=== PATIENT | female | born 1985 | race African-American/Black ===

== ENCOUNTER 2017-11-04 07:47 | Inpatient (IN) | payer MEDICAID ==
[2017-11-04] MEDS ORDERED: ZOFRAN IV PRN (07:51)
[2017-11-04] MEDS ORDERED: BRETHINE IVP PRN (07:51)
[2017-11-04] MEDS ORDERED: BRETHINE SUB-Q PRN (07:51)
[2017-11-04] MEDS ORDERED: XYLOCAINE 2% INFILTRATI NR (07:51)
[2017-11-04] MEDS ORDERED: PITOCin/NS 30 UNIT/500ML 30 UNITS/500 ML BAG IV SCH (08:00)
[2017-11-04] MEDS ORDERED: LACTATED RINGERS 1,000 ML IV SCH (08:00)
[2017-11-04] MEDS ORDERED: PITOCin/NS 20 UNIT/1000ML DRIP 20 UNITS/1,000 ML BAG IV SCH (08:00)
[2017-11-04 08:41] LABS: Hematocrit 39.6 % (30.3-42.9); Mean Corpuscular HGB Conc 33 % (30-34); Mean Corpuscular Hemoglobin 29 pg (28-32); Mean Corpuscular Volume 87 fl (79-97); Platelet Count 266 K/mm3 (140-440); Red Blood Count 4.55 M/mm3 (3.65-5.03); Red Cell Distribution Width 14.3 % (13.2-15.2)
[2017-11-04] MEDS ORDERED: SUBLIMAZE IV NR (08:54)
[2017-11-04] MEDS ORDERED: POLYCILLIN/NS 2 GM/100 ML 2 GM/100 ML BAG IV SCH (09:00)
--- NOTE | 2017-11-04 09:47 | History and Physical Report ---
History of Present Illness Date of examination: 11/04/17 (pt presents in labor with SROM) Date of admission: 11/04/17 07:53 History of present illness: EDC Confirmation: 11/05/2017 Gestational Age: 12 weeks Past History : 3 Term Births: 1 Premature Births: 1 Living Children: 2 Para: 2 # 1 Delivery date: 02/19/2003 labor: yes Delivery type: Delivery location: [facility] Sex: Female weight: [id number] Comments: Unsure of gestation but knows delivered early # 2 Delivery date: 03/10/2008 labor: no Delivery type: Delivery location: [facility] Infant Sex: Male weight: 6lb5oz Past Medical History: negative Past Surgical History: negative General Comments - FH: negative Social History: Patient is single Smoking History: Patient currently smokes sometimes. Last cigarette 2 wks ago Patient has been counseled to quit. Risk Factors: Smoked Tobacco Use: Current some day smoker Cigarettes: Yes -- 0 pack(s) per day,Smokeless Tobacco Use: Never Counseled to quit/cut down: yes Passive smoke exposure: no Drug use: no HIV high-risk behavior: no Caffeine use: 1 drinks per day Alcohol use: yes Type: beer Comments: Beer 2-3 wks ago Seatbelt use: 100 % Dietary Counseling: pn yes Past Medical History Anesthesia Complications: negative Anemia: negative Autoimmune Disorder: negative Bleeding Disorder: negative Blood Transfusions: negative Breast Disease: negative Diabetes: negative Heart Disease: negative Hypertension: negative Hepatitis/Liver Disease: negative Kidney Disease/UTI: negative Neurologic/Epilepsy/Migraines: negative Phlebitis/Varicosities: negative Psychiatric: negative Pulmonary Disease/Asthma: negative Thyroid Disease: negative Hospitalizations: negative Surgery (Non-pulp roller): negative Abnormal PAP: negative QUIANA Exposure: negative Infertility: negative Uterine Anomaly: negative Uterine Surgery (not C/S): negative Other Gynecologic Problems: negative Family Hx: negative Social Hx: Patient is single Smoking History: Patient currently smokes sometimes. Last cigarette 2 wks ago Patient has been counseled to quit. Infection History Hx of STD: none HIV Risk Eval: no Hepatitis B Risk Eval: low risk Personal hx. of genital herpes: no Partner hx. of genital herpes: no Rash, Viral, or Febrile illness since last LMP? no Varicella/Chicken Pox Status: Previous Disease TB Risk: no Genetic History Congenital Heart Defect: Mom: no Dad: no Sara Disease: Mom: no Dad: no Thalassemia Mom: no Dad: no Neural Tube Defect Mom: no Dad: no Down's Syndrome Mom: no Dad: no Rolando-Sachs Mom: no Dad: no Sickle Cell Disease/Trait Mom: no Dad: no Hemophilia Mom: no Dad: no Muscular Dystrophy Mom: no Dad: no Cystic Fibrosis Mom: no Dad: no [place] Chorea Mom: no Dad: no Mental Retardation Mom: no Dad: no Fragile X Mom: no Dad: no Other Genetic/Chromosomal Disorder Mom: no Dad: no Child w/other defect Mom: no Dad: no Enviromental Exposures Xray Exposure: no Medication, drug, or alcohol use since LMP: yes Chemical/Other Exposure: no Exposure to Cat Liter: no Hx of Parvovirus (Fifth Disease): no Occupational Exposure to Children: none Active Medications (reviewed today): None Current Allergies (reviewed today): No known allergies Past History - Obstetrical History Expected Date of Delivery: 11/05/17 Actual Gestation: 40 Week(s) 0 Day(s) : 3 Para: 2 Hx # Term Pregnancies: 1 Number of Pregnancies: 1 Spontaneous Abortions: 0 Induced : 0 Number of Living Children: 2 Medications and Allergies Allergies Allergy/AdvReac Type Severity Reaction Status Date / Time No Known Allergies Allergy Unverified 11/04/17 08:18 Home Medications Medication Instructions Recorded Confirmed Last Taken Type No Known Home Medications [No 11/04/17 11/04/17 Unknown History Reported Home Medications] Active Meds: Active Medications Ephedrine Sulfate (Ephedrine Sulfate) 10 mg IV Q2M PRN PRN Reason: Hypotension Fentanyl (Sublimaze) 100 mcg IV ONCE NR Stop: 11/04/17 10:00 Last Admin: 11/04/17 09:35 Dose: 100 mcg Lactated Ringer's (Lactated Ringers) 1,000 mls @ 125 mls/hr IV DIRECT SUZETTE Last Admin: 11/04/17 09:27 Dose: 125 mls/hr Oxytocin/Sodium Chloride (Pitocin/Ns 20 Unit/1000ml Drip) 20 units in 1,000 mls @ 125 mls/hr IV DIRECT SUZETTE Oxytocin/Sodium Chloride (Pitocin/Ns 30 Unit/500ml) 30 units in 500 mls @ 4 mls /hr IV Q30MIN SUZETTE; Protocol Ampicillin Sodium (Ampicillin/Ns 1 Gm/50 Ml) 1 gm in 50 mls @ 100 mls/hr IV Q4HR SUZETTE; Protocol Ampicillin Sodium (Polycillin/Ns 2 Gm/100 Ml) 2 gm in 100 mls @ 100 mls/hr IV ONCE SUZETTE; Protocol Stop: 11/04/17 11:00 Last Admin: 11/04/17 09:34 Dose: 100 mls/hr Lidocaine (Xylocaine 2%) 20 ml INFILTRATI ONCE NR Stop: 11/04/17 11:00 Mineral Oil (Mineral Oil) 30 ml PO QHS PRN PRN Reason: Constipation Ondansetron HCl (Zofran) 4 mg IV Q8H PRN PRN Reason: Nausea And Vomiting Terbutaline Sulfate (Brethine) 0.25 mg SUB-Q ONCE PRN PRN Reason: Hyperstimulation/Hypertonicity Terbutaline Sulfate (Brethine) 0.25 mg IVP ONCE PRN PRN Reason: Hyperstimulation/Hypertonicity - Vital Signs Vital signs: Vital Signs Pulse BP 63 136/84 11/04/17 07:54 11/04/17 07:54 Temp Pulse Resp BP Pulse Ox 98.1 F 54 L 20 129/86 11/04/17 08:30 11/04/17 08:38 11/04/17 09:35 11/04/17 08:38 - Physical Exam Breasts: Positive: deferred Cardiovascular: Regular rate, Normal S1, Normal S2 Abdomen: Positive: normal appearance, soft, normal bowel sounds. Negative: distention, tenderness Genitourinary (Female): Positive: normal external genitalia Vulva: both: normal Vagina: Positive: normal moisture. Negative: discharge Cervix: Negative: lesion, discharge Uterus: Positive: normal size, normal contour Adnexa: both: normal Anus/Rectum: Positive: normal perianal skin, heme negative. Negative: rectal mass, hemorrhoids Extremities: Deep Tendon Reflex Grade: Normal +2 - Obstetrical FHR: category 1 Uterine Contraction Monitor Mode: External Cervical Dilatation: 2 (SROM) Cervical Effacement Percentage: 50 station: -2 Uterine Contraction Pattern: Regular Uterine Tone Measurement Phase: Resting Uterine Contraction Intensity: Strong/Firm Results Result Diagrams: 11/04/17 08:23 All other labs normal. Strep Gp B PRATIMA [A] Positive HBsAg Screen Negative Negative *1 RPR [A] Reactive Non Reactive *2 Tests: (2) RPR Qn+TP Abs (764915) RPR, Quant. [H] 1:1 NonRea<1:1 *3 ! Treponema pallidum Antibodies [A] Positive Negative *4 Tests: (3) Profile I ([id number]) Rubella Antibodies, IgG 2.43 index Immune >0.99 *5 Non-immune <0.90 Equivocal 0.90 - 0.99 Immune >0.99 ABO Grouping AB *6 Rh Factor Positive *7 Please note: Prior records for this patient's ABO / Rh type are not available for additional verification. Antibody Screen Negative Negative *8 WBC 8.2 x10E3/uL 3.4-10.8 *9 RBC 4.06 x10E6/uL 3.77-5.28 *10 Hemoglobin 12.2 g/dL 11.1-15.9 *11 Hematocrit 36.8 % 34.0-46.6 *12 MCV 91 fL 79-97 *13 MCH 30.0 pg 26.6-33.0 *14 MCHC 33.2 g/dL 31.5-35.7 *15 RDW 13.0 % 12.3-15.4 *16 Platelets 249 x10E3/uL 150-379 *17 Neutrophils 71 % Not Estab. *18 Lymphs 23 % Not Estab. *19 Monocytes 5 % Not Estab. *20 Eos 1 % Not Estab. *21 Basos 0 % Not Estab. *22 ! Immature Cells <No Reported Value> *23 Neutrophils (Absolute) 5.8 x10E3/uL 1.4-7.0 *24 Lymphs (Absolute) 1.8 x10E3/uL 0.7-3.1 *25 Monocytes(Absolute) 0.4 x10E3/uL 0.1-0.9 *26 Eos (Absolute) 0.1 x10E3/uL 0.0-0.4 *27 Baso (Absolute) 0.0 x10E3/uL 0.0-0.2 *28 ! Immature Granulocytes 0 % Not Estab. *29 ! Immature Grans (Abs) 0.0 x10E3/uL 0.0-0.1 *30 ! NRBC <No Reported Value> *31 Hematology Comments: <No Reported Value> *32 Tests: (4) AFP Tetra ([id number]) ! Results Report *33 ! Test Results: *Screen Negative* *34 ! Tests: (5) Panel 008538 ([id number]) HIV Screen 4th Generation wRfx Non Reactive Non Reactive *57 Tests: (6) HCV Ab w/Rflx to Verification ([id number]) ! HCV Ab <0.1 s/co ratio 0.0-0.9 *58 Tests: (7) Comment: ([id number]) ! Comment: SPRCS *59 Non reactive HCV antibody screen is consistent with no HCV infection, unless recent infection is suspected or other evidence exists to indicate HCV infection. Tests: (8) Urine Culture, Routine ([id number]) Urine Culture, Routine Final report *60 Tests: (9) Result ([id number]) ! Result 1 No growth Assessment and Plan 32yo @ 39 weeks with SROM fluid clear on admission. GBS+ Ampicillin per protocol Orders in EMR - Patient Problems (1) 39 weeks gestation of Onset Date: ~11/04/17 Current Visit: Yes Status: Acute (2) Group B Streptococcus carrier state affecting Onset Date: ~11/04/17 Current Visit: Yes Status: Acute (3) Spontaneous rupture of membranes Onset Date: ~11/04/17 Current Visit: Yes Status: Acute
[2017-11-04] MEDS ORDERED: SUBLIMAZE IV SCH (10:00)
[2017-11-04] MEDS ORDERED: NARCAN 2 MG/2 ML IV PRN (10:57)
--- NOTE | 2017-11-04 10:57 | Anesthesia Consultation ---
Anesthesia Consult and Med Hx Date of service: 11/04/17 - Airway Anesthetic Teeth Evaluation: Good ROM Head & Neck: Adequate Mental/Hyoid Distance: Adequate Mallampati Class: Class II Intubation Access Assessment: Probably Good - Pre-Operative Health Status ASA Pre-Surgery Classification: ASA2 Proposed Anesthetic Plan: Epidural, Spinal - Pulmonary Hx Asthma: No COPD: No Hx Pneumonia: No - Cardiovascular System Hx Hypertension: No - Central Nervous System Hx Seizures: No Hx Psychiatric Problems: No - Endocrine Hx Renal Disease: No Hx End Stage Renal Disease: No Hx Hypothyroidism: No Hx Hyperthyroidism: No - Hematic Hx Anemia: No Hx Sickle Cell Disease: No - Other Systems Hx Alcohol Use: No
[2017-11-04] MEDS: fentaNYL-BUPIV 2 MCG/ML-0.125% 200 MCG/100 ML BAG EPIDURAL SCH ×2 (12:14→19:06)
[2017-11-04] MEDS ORDERED: XYLOCAINE MPF 2% ONE (13:08)
[2017-11-04] MEDS: AMPICILLIN/NS 1 GM/50 ML 1 GM/50 ML BAG IV SCH ×2 (14:00→19:08)
[2017-11-04] MEDS ORDERED: NACL 0.45% 1000 ML 1,000 ML IV ONE (18:12)
[2017-11-04] MEDS ORDERED: NACL 0.9% 1000 ML 1,000 ML VG SCH ×2 (19:00)
--- NOTE | 2017-11-04 21:39 | Procedure Note ---
OB Delivery Note - Delivery Date of Delivery: 11/04/17 Surgeon: LORIN LUNDY Estimated blood loss: 300cc - Vaginal Delivery presentation: vertex Delivery position: OA Intrapartum events: PROM->1hr before delivery, meconium, mult.variable deceleratio, other(please specify) (multiple variables improved after administration of amnioinfusion) Delivery augmentation: pitocin Delivery monitor: external FHT, external uterine, internal FHT, internal uterine Route of delivery: Delivery placenta: spontaneous Delivery cord: nuchal cord (1) Episiotomy: none Delivery laceration: 2nd degree Delivery repair: vicryl Anesthesia: epidural Delivery comments: NICU staff present at time of delivery - Infant A at 1 minute: 8 at 5 minutes: 9 Gender: Male (6 lbs. 11 oz.)
[2017-11-04] MEDS ORDERED: MINERAL OIL PO PRN (22:00)
[2017-11-04] MEDS ORDERED: BENADRYL PO PRN (23:18)
[2017-11-04] MEDS ORDERED: NORCO 5/325 PO PRN (23:18)
[2017-11-04] MEDS ORDERED: DULCOLAX PR PRN (23:18)
[2017-11-04] MEDS ORDERED: MILK OF MAGNESIA PO PRN (23:18)
[2017-11-04] MEDS ORDERED: PHENERGAN PO PRN (23:18)
[2017-11-04] MEDS ORDERED: TUCKS PAD TP PRN (23:18)
[2017-11-04] MEDS ORDERED: LANSINOH TP PRN (23:18)
[2017-11-04] MEDS ORDERED: SODIUM CHLORIDE FLUSH SYRINGE 10 ML IV NR (23:18)
[2017-11-04] MEDS ORDERED: TYLENOL PO PRN (23:18)
[2017-11-05] MEDS: COLACE PO SCH ×2 (00:12→10:52)
[2017-11-05] MEDS: MOTRIN PO SCH ×4 (00:14→18:00)
--- NOTE | 2017-11-05 08:31 | Progress Note ---
Assessment and Plan - Patient Problems (1) Spontaneous vaginal delivery Onset Date: ~11/04/17 Current Visit: Yes Status: Acute Plan to address problem: Resting No c/o voiced Baby sleeping VSS FF below umb Lochia small Perineum intact H&H pending Doing well s/p vag delivery P: continue pathway d/c tomorrow Subjective - Subjective Date of service: 11/05/17 (no c/o voiced) Principal diagnosis: Day # 1 s/p vag delivery Interval history: EDC Confirmation: 11/05/2017 Gestational Age: 12 weeks Past History : 3 Term Births: 1 Premature Births: 1 Living Children: 2 Para: 2 # 1 Delivery date: 02/19/2003 labor: yes Delivery type: Delivery location: [facility] Sex: Female weight: [id number] Comments: Unsure of gestation but knows delivered early # 2 Delivery date: 03/10/2008 labor: no Delivery type: Delivery location: [facility] Sex: Male weight: 6lb5oz Past Medical History: negative Past Surgical History: negative General Comments - FH: negative Social History: Patient is single Smoking History: Patient currently smokes sometimes. Last cigarette 2 wks ago Patient has been counseled to quit. Risk Factors: Smoked Tobacco Use: Current some day smoker Cigarettes: Yes -- 0 pack(s) per day,Smokeless Tobacco Use: Never Counseled to quit/cut down: yes Passive smoke exposure: no Drug use: no HIV high-risk behavior: no Caffeine use: 1 drinks per day Alcohol use: yes Type: beer Comments: Beer 2-3 wks ago Seatbelt use: 100 % Dietary Counseling: pn yes Past Medical History Anesthesia Complications: negative Anemia: negative Autoimmune Disorder: negative Bleeding Disorder: negative Blood Transfusions: negative Breast Disease: negative Diabetes: negative Heart Disease: negative Hypertension: negative Hepatitis/Liver Disease: negative Kidney Disease/UTI: negative Neurologic/Epilepsy/Migraines: negative Phlebitis/Varicosities: negative Psychiatric: negative Pulmonary Disease/Asthma: negative Thyroid Disease: negative Hospitalizations: negative Surgery (Non-sales associate): negative Abnormal PAP: negative QUIANA Exposure: negative Infertility: negative Uterine Anomaly: negative Uterine Surgery (not C/S): negative Other Gynecologic Problems: negative Family Hx: negative Social Hx: Patient is single Smoking History: Patient currently smokes sometimes. Last cigarette 2 wks ago Patient has been counseled to quit. Infection History Hx of STD: none HIV Risk Eval: no Hepatitis B Risk Eval: low risk Personal hx. of genital herpes: no Partner hx. of genital herpes: no Rash, Viral, or Febrile illness since last LMP? no Varicella/Chicken Pox Status: Previous Disease TB Risk: no Genetic History Congenital Heart Defect: Mom: no Dad: no Sara Disease: Mom: no Dad: no Thalassemia Mom: no Dad: no Neural Tube Defect Mom: no Dad: no Down's Syndrome Mom: no Dad: no Rolando-Sachs Mom: no Dad: no Sickle Cell Disease/Trait Mom: no Dad: no Hemophilia Mom: no Dad: no Muscular Dystrophy Mom: no Dad: no Cystic Fibrosis Mom: no Dad: no [place] Chorea Mom: no Dad: no Mental Retardation Mom: no Dad: no Fragile X Mom: no Dad: no Other Genetic/Chromosomal Disorder Mom: no Dad: no Child w/other defect Mom: no Dad: no Enviromental Exposures Xray Exposure: no Medication, drug, or alcohol use since LMP: yes Chemical/Other Exposure: no Exposure to Cat Liter: no Hx of Parvovirus (Fifth Disease): no Occupational Exposure to Children: none Active Medications (reviewed today): None Current Allergies (reviewed today): No known allergies Patient reports: appetite normal, voiding normally, pain well controlled, ambulating normally : doing well Objective - Vital Signs Latest vital signs: Vital Signs Temp Pulse Resp BP BP Pulse Ox 11/05/17 04:30 98.7 F 74 16 114/78 11/04/17 23:00 98.7 F 66 16 101/74 11/04/17 22:30 73 130/76 11/04/17 22:29 64 97 11/04/17 22:24 68 99 11/04/17 22:15 69 132/76 11/04/17 22:00 84 130/76 11/04/17 21:45 81 132/75 11/04/17 21:33 77 125/81 11/04/17 21:31 69 135/79 11/04/17 21:01 77 147/67 11/04/17 20:52 65 100 11/04/17 20:47 61 100 11/04/17 20:42 62 100 11/04/17 20:37 71 100 09/24/18 20:32 68 100 18 20:31 63 138/78 18 20:27 64 100 18 20:22 61 100 18 20:17 64 100 18 20:16 56 L 127/82 18 20:12 59 L 100 18 20:07 55 L 100 18 20:05 97.5 F L 63 18 146/84 100 18 20:02 60 100 18 20:01 63 146/84 18 19:57 56 L 100 18 19:52 68 100 18 19:47 65 100 18 19:46 61 138/81 18 19:42 64 100 18 19:37 61 100 18 19:32 58 L 98 18 19:31 124/94 11/04/17 19:27 55 L 100 18 19:22 55 L 100 18 19:17 58 L 100 18 19:16 58 L 143/67 11/04/17 19:12 57 L 100 18 19:07 57 L 100 18 19:02 54 L 139/79 100 18 18:57 56 L 100 18 18:52 58 L 100 18 18:47 58 L 100 18 18:46 60 137/63 18 18:42 60 100 18 18:37 71 100 18 18:32 65 100 18 18:31 60 123/85 18 18:27 64 100 18 18:22 61 100 18 18:17 68 100 18 18:12 81 100 18 18:07 63 100 18 18:02 73 100 18 18:00 65 130/85 18 17:57 60 100 2418 17:53 98.2 F 16 18 17:52 63 100 18 17:47 56 L 142/77 100 09/24/18 17:42 59 L 100 11/04/17 17:37 72 100 11/04/17 17:33 102 H 82 L 11/04/17 17:32 57 L 100 11/04/17 17:31 55 L 139/82 11/04/17 17:27 59 L 100 11/04/17 17:22 57 L 100 11/04/17 17:17 78 79 L 11/04/17 17:15 55 L 146/82 11/04/17 17:12 68 85 11/04/17 17:07 59 L 100 11/04/17 17:02 52 L 138/84 100 11/04/17 16:56 55 L 100 11/04/17 16:51 58 L 100 11/04/17 16:47 52 L 153/86 11/04/17 16:46 54 L 100 11/04/17 16:41 55 L 100 11/04/17 16:36 54 L 100 11/04/17 16:31 54 L 148/87 100 11/04/17 16:26 67 89 11/04/17 16:21 55 L 100 11/04/17 16:17 53 L 144/82 11/04/17 16:16 60 100 11/04/17 16:11 57 L 100 11/04/17 16:06 60 100 11/04/17 16:01 54 L 100 11/04/17 16:00 53 L 125/78 11/04/17 15:56 53 L 100 11/04/17 15:51 52 L 100 11/04/17 15:46 55 L 139/85 100 11/04/17 15:41 60 100 11/04/17 15:36 51 L 100 11/04/17 15:31 56 L 100 11/04/17 15:26 54 L 100 11/04/17 15:21 53 L 100 11/04/17 15:17 63 144/63 11/04/17 15:16 56 L 100 11/04/17 15:11 58 L 100 11/04/17 15:06 53 L 100 11/04/17 15:01 52 L 138/80 100 11/04/17 14:56 54 L 99 11/04/17 14:51 51 L 99 11/04/17 14:46 52 L 134/77 99 09/24/18 14:41 54 L 99 11/04/17 14:36 54 L 99 11/04/17 14:32 56 L 129/77 11/04/17 14:31 54 L 100 11/04/17 14:26 51 L 100 11/04/17 14:21 52 L 99 11/04/17 14:16 62 100 11/04/17 14:15 61 139/81 11/04/17 14:11 58 L 100 11/04/17 14:06 53 L 100 11/04/17 14:01 56 L 100 11/04/17 14:00 55 L 122/75 11/04/17 13:56 66 100 11/04/17 13:52 98.1 F 16 11/04/17 13:51 75 100 11/04/17 13:46 58 L 100 11/04/17 13:45 62 121/72 11/04/17 13:41 58 L 100 11/04/17 13:36 62 99 11/04/17 13:31 62 122/73 99 11/04/17 13:26 86 98 11/04/17 13:21 77 98 11/04/17 13:16 104 H 109/71 96 11/04/17 13:11 71 98 11/04/17 13:06 60 99 11/04/17 13:01 57 L 119/79 39 L 11/04/17 12:56 56 L 97 11/04/17 12:51 55 L 97 11/04/17 12:46 59 L 98 11/04/17 12:45 57 L 114/74 11/04/17 12:41 56 L 97 11/04/17 12:36 56 L 98 11/04/17 12:32 55 L 122/76 11/04/17 12:31 58 L 98 11/04/17 12:26 59 L 100 11/04/17 12:21 58 L 99 11/04/17 12:16 61 98 11/04/17 12:15 56 L 116/82 11/04/17 12:11 64 99 11/04/17 12:06 59 L 98 11/04/17 12:01 57 L 100 11/04/17 12:00 57 L 114/74 18 11:56 49 L 98 18 11:51 52 L 98 11/04/17 11:47 51 L 134/74 09/24/18 11:46 54 L 99 11/04/17 11:41 64 98 11/04/17 11:36 60 98 11/04/17 11:32 54 L 113/70 11/04/17 11:31 53 L 98 11/04/17 11:26 74 130/74 99 11/04/17 11:21 53 L 99 11/04/17 11:18 61 145/82 11/04/17 11:15 58 L 130/70 11/04/17 11:14 67 100 11/04/17 11:09 58 L 100 11/04/17 11:08 59 L 83 L 11/04/17 10:05 16 11/04/17 09:35 20 11/04/17 08:38 54 L 129/86 11/04/17 08:30 98.1 F 16 Intake and Output 11/04/17 11/05/17 11/05/17 22:59 06:59 14:59 Intake Total 400 Output Total 1400 Balance -1000 Intake: Oral 400 Output: Urine 1400 Void 1400 Other: Total, Intake Amount 100 Total, Output Amount 400 - Exam Breasts: Present: normal Cardiovascular: Present: Regular rate Lungs: Present: Normal air movement Abdomen: Present: normal appearance, soft Uterus: Present: normal, firm, fundal height below umbilicus Extremities: Present: normal Deep Tendon Reflex Grade: Normal +2 Incision: Present: normal, dry, intact
[2017-11-05 10:01] LABS: Hematocrit 32.5 % (30.3-42.9); Hemoglobin 10.6 gm/dl (10.1-14.3)
[2017-11-05] MEDS: PRENATAL VITAMIN PO SCH (10:52)
[2017-11-06] MEDS: MOTRIN PO SCH ×3 (00:29→12:00)
[2017-11-06] MEDS: COLACE PO SCH ×2 (00:37→10:45)
[2017-11-06] MEDS ORDERED: BOOSTRIX IM ONE (06:00)
--- NOTE | 2017-11-06 08:58 | Discharge Summary ---
Providers - Providers Date of Admission: 11/04/17 07:53 Date of discharge: 11/06/17 Attending physician: LORIN LUNDY 11/04/17 23:18 Consult to Baggage And Mail Agent [CONS] Routine Reason For Exam: assistance with , SNS Primary care physician: LORIN LUNDY Hospitalization Reason for admission: Labor Condition: Good Pertinent studies: post del H&H 10.6/32.5 Procedures: Hospital course: uncomplicated and course Disposition: DC-01 TO HOME OR SELFCARE - Discharge Diagnoses (1) Spontaneous vaginal delivery Status: Acute Core Measure Documentation - Palliative Care Palliative Care/ Comfort Measures: Not Applicable - Core Measures Any of the following diagnoses?: none Exam - Constitutional Vitals: Temp Pulse Resp BP Pulse Ox 98.7 F 79 18 103/64 97 11/06/17 00:30 11/06/17 00:30 11/06/17 00:30 11/06/17 00:30 11/04/17 22:29 General appearance: Present: no acute distress, well-nourished - EENT Eyes: Present: PERRL ENT: hearing intact, clear oral mucosa - Neck Neck: Present: supple, normal ROM - Respiratory Respiratory effort: normal Respiratory: bilateral: CTA - Cardiovascular Heart Sounds: Present: S1 & S2. Absent: rub, click - Extremities Extremities: pulses symmetrical, No edema Peripheral Pulses: within normal limits - Abdominal General gastrointestinal: Present: soft, non-tender, non-distended, normal bowel sounds Female genitourinary: Present: normal - Integumentary Integumentary: Present: clear, warm, dry - Musculoskeletal Musculoskeletal: gait normal, strength equal bilaterally - Psychiatric Psychiatric: appropriate mood/affect, intact judgment & insight - Neurologic Neurologic: CNII-XII intact, moves all extremities - Additional findings Additional findings: narinder well approximated and healing well, fundus firm, lochia scant, bottle feeding. Plan Activity: no restrictions Diet: regular Wound: open to air, keep clean and dry Follow up with: LORIN LUNDY MD [Primary Care Provider] - 12/09/17 (Congratulations! Please call [phone] to schedule your visit in 4 weeks. Call for any questions or concerns. ) Prescriptions: Ibuprofen [Motrin 800 MG tab] 800 mg PO TID PRN #30 tablet PRN Reason: Pain Ibuprofen [Motrin 800 MG tab] 800 mg PO Q8HR PRN #30 tablet PRN Reason: Pain Lidocain2.5%/Prilocai2.5% [Emla] 5 gm TP ONCE PRN #1 tube PRN Reason: Pain
[2017-11-06] MEDS: PRENATAL VITAMIN PO SCH (10:45)
[2017-11-06 20:23] VITALS: BP 126/86
== END 2017-11-06 16:45 | disposition home or self-care (01) | DRG 775 ==
LOC: TRG 07:47 → LD 07:53 → OB 23:14
PROVIDERS: ADMIT Obstetrics & Gynecology; ATTEND Obstetrics & Gynecology
PROC: 10E0XZZ Delivery of Products of Conception, External Approach (ICD-10-PCS; principal; 2017-11-04)
PROC: 0KQM0ZZ Repair Perineum Muscle, Open Approach (ICD-10-PCS; 2017-11-04)
PROC: 3E0R3BZ Introduction of Anesthetic Agent into Spinal Canal, Percutaneous Approach (ICD-10-PCS; 2017-11-04)
PROC: 00HU33Z Insertion of Infusion Device into Spinal Canal, Percutaneous Approach (ICD-10-PCS; 2017-11-04)
DX: O99.824 Streptococcus B carrier state complicating childbirth (principal); O99.334 Smoking (tobacco) complicating childbirth; F17.210 Nicotine dependence, cigarettes, uncomplicated; O42.92 Full-term premature rupture of membranes, unspecified as to length of time between rupture and onset of labor; O77.0 Labor and delivery complicated by meconium in amniotic fluid; O76 Abnormality in fetal heart rate and rhythm complicating labor and delivery; O69.81X0 Labor and delivery complicated by cord around neck, without compression, not applicable or unspecified; O70.1 Second degree perineal laceration during delivery; Z71.6 Tobacco abuse counseling; Z3A.39 39 weeks gestation of pregnancy; Z37.0 Single live birth
CPT/HCPCS: 36415; 85014; 85018; 85027; 86592; 86850; 86900; 86901; J0290; J2590; J3010; J7120